=== PATIENT | female | born 1970 | race Caucasian/White ===

== ENCOUNTER 2018-02-06 09:46 | Outpatient (CLI) | payer OTHER ==
[~2018-02-06 09:46] MED LIST: NEURONTIN600 MG; NORVASC5 MG; PEPCID40 MG PO; PROTONIX40 MG PO
== END 2018-02-06 13:26 | disposition home or self-care (01) ==
LOC: MRI 09:46
DX: M25.562 Pain in left knee (principal)
CPT/HCPCS: 73721

== ENCOUNTER 2019-08-05 08:51 | Outpatient (CLI) | payer OTHER | END 2019-08-05 08:57 | disposition home or self-care (01) | LOC: SONOGRAMA 08:51 → MAMO-SONO 10:15 | DX: D48.62 Neoplasm of uncertain behavior of left breast (principal) ==

== ENCOUNTER 2020-08-13 14:23 | Outpatient (CLI) | payer OTHER | END 2020-08-13 14:28 | disposition home or self-care (01) | LOC: SONOGRAMA 14:23 | PROVIDERS: ATTEND Obstetrics & Gynecology | DX: N83.02 Follicular cyst of left ovary (principal); R10.2 Pelvic and perineal pain; N94.89 Other specified conditions associated with female genital organs and menstrual cycle; N94.0 Mittelschmerz ==

== ENCOUNTER 2021-01-10 20:49 | Emergency (ER) | payer OTHER ==
[~2021-01-10] VITALS: Ht 175.3 cm; Wt 87.1 kg
[2021-01-10] MEDS ORDERED: AMLODIPINE BESYL5 MG PO (20:58)
[2021-01-10] MEDS ORDERED: VITAMIN D350 MCG PO (20:58)
[2021-01-10] MEDS ORDERED: ZANAFLEX2 MG PO (20:58)
[2021-01-10] MEDS ORDERED: GABAPENTIN300 M2 PO (20:58)
[2021-01-10] MEDS ORDERED: ATORVASTATIN CA20 MG PO (20:59)
[2021-01-10] MEDS ORDERED: FAMOTIDINE20 MG PO (20:59)
[2021-01-10] MEDS ORDERED: NAPROXEN375 MG PO (23:42)
[2021-01-10] MEDS ORDERED: BACTRIM DS TAB1 EACH PO (23:42)
== END 2021-01-10 23:32 | disposition home or self-care (01) ==
LOC: ER 20:49
DX: N61.1 Abscess of the breast and nipple (principal); L03.818 Cellulitis of other sites; B96.89 Other specified bacterial agents as the cause of diseases classified elsewhere

== ENCOUNTER 2021-04-25 13:50 | Outpatient (CLI) | payer OTHER ==
[~2021-04-25 13:50] MED LIST changes: +AMLODIPINE BESYL5 MG PO; +ATORVASTATIN CA20 MG PO; +BACTRIM DS TAB1 EACH PO; +FAMOTIDINE20 MG PO; +GABAPENTIN300 M2 PO; +NAPROXEN375 MG PO; +VITAMIN D350 MCG PO; +ZANAFLEX2 MG PO
== END 2021-04-25 14:21 | disposition home or self-care (01) ==
LOC: SONOGRAMA 13:50 → MAMO-SONO 14:15 → SONOGRAMA 14:21
PROVIDERS: ATTEND Surgery
DX: N60.11 Diffuse cystic mastopathy of right breast (principal); N60.12 Diffuse cystic mastopathy of left breast; N61.0 Mastitis without abscess

== ENCOUNTER 2022-01-09 09:25 | Outpatient (CLI) | payer OTHER | END 2022-01-09 09:32 | disposition home or self-care (01) | LOC: SONOGRAMA 09:25 | PROVIDERS: ATTEND Internal Medicine Gastroenterology | DX: R10.84 Generalized abdominal pain (principal) ==

== ENCOUNTER 2022-03-02 05:00 | Day surgery (SDC) | payer OTHER ==
[~2022-03-02 05:00] MED LIST changes: +LIPIT PO; +TIZANIDINE HCL2 M1 PO; +TRICOR145 MG PO; +VITAMIN C100 MG PO
== END 2022-03-02 11:20 | disposition home or self-care (01) ==
LOC: CIR.AMB 05:00
PROVIDERS: ATTEND Specialist
DX: K80.10 Calculus of gallbladder with chronic cholecystitis without obstruction (principal); I10 Essential (primary) hypertension; E78.5 Hyperlipidemia, unspecified; Z71.6 Tobacco abuse counseling; F17.210 Nicotine dependence, cigarettes, uncomplicated

== ENCOUNTER 2023-08-14 08:07 | Outpatient (CLI) | payer OTHER | END 2023-08-14 08:26 | disposition home or self-care (01) | LOC: TOM 08:07 | DX: E27.8 Other specified disorders of adrenal gland (principal); E84.9 Cystic fibrosis, unspecified | CPT/HCPCS: 74160; Q9965 ==

== ENCOUNTER 2025-04-15 13:31 | Outpatient (CLI) | payer OTHER | END 2025-04-15 13:38 | disposition home or self-care (01) | LOC: SONOGRAMA 13:31 | PROVIDERS: ATTEND Internal Medicine | DX: E04.2 Nontoxic multinodular goiter (principal) ==

== ENCOUNTER 2025-04-22 09:09 | Outpatient (CLI) | payer OTHER | END 2025-04-22 09:10 | disposition home or self-care (01) | LOC: NUCLEAR 09:09 | DX: I87.2 Venous insufficiency (chronic) (peripheral) (principal) ==

== ENCOUNTER 2025-05-05 09:20 | Outpatient (CLI) | payer OTHER | END 2025-05-05 09:21 | disposition home or self-care (01) | LOC: NUCLEAR 09:20 | DX: I87.2 Venous insufficiency (chronic) (peripheral) (principal) ==